=== PATIENT | male | born 1960 | race Caucasian/White ===

== ENCOUNTER 2023-12-02 07:40 | Outpatient (CLI) | payer BC, SELFPAY ==
--- NOTE | 2023-12-02 08:08 | ECG_ITS ---
SEE SCANNED COPY FOR CONFIRMED REPORT MTDD
[2023-12-02 08:36] LABS: Hematocrit 49.2 % (42.0-52.0); Mean Corpuscular HGB Conc 32.5 g/dl (32-36); Mean Corpuscular Hemoglobin 29.3 pg (26-34); Mean Corpuscular Volume 89.9 fl (80-100); Mean Platelet Volume 9.2 fl (7.4-10.4); Platelet Count Result 194 k/mm3 (150-375); Red Blood Count 5.47 M/mm3 (4.6-6.20); Red Cell Distribution Width 12.5 % (11.5-14.5); White Blood Count 6.4 K/mm3 (4.5-10.0)
[2023-12-02 08:37] LABS: Appearance Urine Clear (Clear); Bilirubin Urine Negative (Negative); Blood Urine Negative (Negative); Color Urine Yellow (Yellow); Glucose Urine UA Negative (Negative); Ketones Urine Negative (Negative); Leukocyte Esterase Ur Negative LEU/UL (Negative); Nitrate Urine Negative (Negative); Protein Urine Negative (Negative); Specific Grav Ur 1.023 (1.001-1.035); Urobilinogen Urine 0.2 mg/dL (<2.0); pH Urine 5.5 (5.0-9.0)
[2023-12-02 08:43] LABS: Add Urine Microscopic? NO
[2023-12-02 08:48] LABS: Partial Thromboplastin Time 28.3 Seconds (22.3-36.8)
[2023-12-02 08:51] LABS: Anion Gap 5 mmol/L (4-12); Blood Urea Nitrogen 27 mg/dL (9-20); Calcium 9.1 mg/dL (8.4-10.2); Carbon Dioxide 28 mmol/L (22-30); Chloride 107 mmol/L (98-107); Estimated Glomerular Filt Rate > 60; Glucose 114 mg/dL (65-110); Sodium 140 mmol/L (137-145)
== END 2023-12-02 07:41 | disposition home or self-care (01) ==
PROVIDERS: PCP Internal Medicine; Visit Provider Neurological Surgery
DX: M47.812 Spondylosis without myelopathy or radiculopathy, cervical region (principal); E78.5 Hyperlipidemia, unspecified; I10 Essential (primary) hypertension
CPT/HCPCS: 36415; 80048; 81003; 85027; 85610; 85730; 86850; 86900; 86901; 93005

== ENCOUNTER 2023-12-07 01:28 | Day surgery (SDC) | payer BC, SELFPAY ==
[2023-11-26 11:59] VITALS: BMI 31.6
--- NOTE | 2023-11-26 12:00 | PC.NURSE ---
Report to the Outpatient Waiting Room, entrance under the green pavilion located off [facility], at time _1030_ on date _[id number]_. Planned Procedure Time: _1230_. Time changes happen often and if your time is changed the preop area will call you the afternoon before. - You and your visitor will be asked to self-screen and do not enter if you have any COVID symptoms. - A mask is optional within the hospital at this time. Patients may have clear liquids (water, carbonated beverages, clear teas, apple juice) until 3 hours prior to surgery with a maximum of 20 ounces. - No food from midnight until time of surgery Take the following medications with a SIP of water the morning of surgery: ___None DO NOT STOP ANY OF YOUR OTHER PRESCRIPTION MEDICATIONS PRIOR TO SURGERY ?EXCEPT THE FOLLOWING Medications to discontinue per physician ___All vitamins Date to take last [id number]__[id number] Please no make-up, nail serbian, hairspray, perfume, deodorant, or body powder the day of surgery. No jewelry (including any body piercings) or valuables the day of surgery, leave them at home. Please take a shower or bath the night before, or the morning of, surgery with an antibacterial soap. Wear comfortable, loose fitting clothing. - Jewelry must be removed prior to entering the operating room. Rings and piercings that are not removed may be cut off. - The hospital will not accept responsibility for valuables. - Please leave all valuables, including medications, at home the day of surgery. If you are going home after surgery, a licensed carrier driver must drive you home. - NO public transportation without another adult if you receive anesthesia. - We recommend that an adult stay with you for 24 hours following discharge. - We also recommend that you do not drive, make important decision, drink alcoholic beverages, or take any drugs that were not prescribed by your health care provider for at least 24 hours after your discharge time. Follow any additional instructions given to you from your surgeon. If you or anyone in your household have experienced Covid symptoms in the past week, please notify your surgeon or the nurse liaison at the phone number below for possible testing. Telephone instructions given to _Kiran__and asked if any additional questions and then verbalized understanding. Patient advised to call surgeon office or pre surgery nurse liaison [phone] if any additional questions.
--- NOTE | ~2023-12-07 | XR_ITS ---
EXAMINATION: XR fluoroscopy no charge DATE: 12/07/2023 12:30 CDT INDICATION: C7-T1 ANTERIOR DISCECTOMY AND FUSION . TECHNIQUE: 2 fluoroscopic images of the cervical spine were obtained during C7-T1 anterior discectomy and fusion, performed by Thiago Lambert MD. I was not present during the procedure. Fluoroscopy exposure time was 7.3 seconds. Air Kerma 1.7575 mGy. DAP 0.0348 mGym2. COMPARISON: None FINDINGS/IMPRESSION: Fluoroscopic documentation of C7-T1 anterior discectomy and fusion. Please refer to the operative not e for complete procedural details . Reviewed, dictated and finalized at location K.
[2023-12-07 10:18] VITALS: BP 149/85; PULSE 82; RESP 18; TEMP 36.3; O2SAT 99
--- NOTE | 2023-12-07 11:29 | WPDANESEPPF ---
Anes - Initial Pre Proc Eval Procedure: Operation Date: 12/07/23 12:30 Proposed Procedures p C7-T1 Anterior Discectomy and Fusion - Thiago Lambert MD Date/Time: 12/07/23 11:29 Surgeon: Thiago Lambert MD Pre Op Diagnosis: C7-T1 spondylosis, neuroforaminal narrowing Patient Data Age: 62 Gender: M Height: 1.78 m Weight: 105 kg Last Vital Signs Temp 97.3 F L 12/07/23 10:18 Pulse 82 12/07/23 10:18 Resp 18 12/07/23 10:18 BP 149/85 H 12/07/23 10:18 Pulse Ox 99 12/07/23 10:18 O2 Del Method Room Air 12/07/23 10:18 Allergies Allergy/AdvReac Type Severity Reaction Status Date / Time No Known Allergies Allergy Verified 12/07/23 10:57 Home Medications Medication Instructions Recorded Confirmed Type atorvastatin 40 mg tablet 40 mg PO DAILY 09/21/22 12/07/23 History multivitamin 1 tablet PO DAILY 11/26/23 12/07/23 History valsartan 160 mg tablet 160 mg PO DAILY 11/26/23 12/07/23 History Patient hx anesthesia problems: none Family hx anesthesia problems: none Results Review: All pre-operative results and documents have been reviewed as part of the pre-operative evaluation. [facility] [place] Past Medical History Medical History Hyperlipemia Family History Family History Father Heart disease Mother Hypertension Social History Social History Smoking status: Former smoker Tobacco type: cigars Alcohol intake: current Alcohol use details: occasionally Substance use: never Substance use type: does not use Do You Feel Safe in your Home?: Yes Lack of Transportation: No Lack of Food: Never True Current Housing: I Have Housing Concerned About Future Housing: No Difficulty Paying Gas/Electric Bills: No Difficulty Paying for Meds: No Currently Unemployed: No Education: Bachelor's Degree Difficulty w/ Childcare or Family Care: Decline to Answer Living arrangements: with family Gender identity (if verbalized by the patient): Male Spiritual care concerns: No Anes - Eval Final PreProcedure Day of Procedure 12/07/23 11:29 Patient weight: obese Heart: regular rate and rhythm Lungs: clear to auscultation Airway: Mallampati scale class II Neurological: alert and oriented Last oral intake: >/= 8 hours ASA classification: III Emergent: no Anesthetic plan: proceed Anesthesia type and monitoring: general ETT and standard monitoring Results Review: All pre-operative results and documents have been reviewed as part of the pre-operative evaluation. Informed Consent: The patient's anesthetic plan and its attendant risks and benefits were discussed with the patient/family/POA. Questions were solicited and answers provided to the satisfaction of the patient/family/POA.
--- NOTE | 2023-12-07 11:46 | PM.IMHP ---
H&P: HPI History of Present Illness Date/Time: 12/07/23 11:46 Chief Complaint: Arm pain and weakness Narrative: Kiran is here today for C7-T1 anterior cervical diskectomy and fusion to treat a C8 radiculopathy secondary to compression in the foramen. He continues to have some weakness in his hand and some difficulty looking up and using his arms overhead.? This is not improved dramatically.? His hand function has improved since its initial decline but not recently.? He is still having difficulty doing some activities and just avoids many activities because of the limitations of discomfort and dizziness that occur occasionally occurs if he looks up.? He is not having bowel or bladder difficulty.? He has specific muscle group weakness in his hand and occasional numbness in the right upper extremity.? He has discomfort in the right forearm at times especially when he is using the right hand.? Review of Systems Review of Systems: Const Details: Const Details: Const All systems reviewed & are unremarkable except as noted in HPI and below Denies chills, Denies fever(s), Denies weight gain and Denies weight loss Eyes Denies change in vision and Denies diplopia ENT Denies disequilibrium Card Denies chest pain and Denies dyspnea Resp Denies cough and Denies dyspnea GI Denies abdominal pain, Denies change in bowel habits, Denies fecal incontinence and Denies vomiting Denies hematuria, Denies oliguria, Denies difficulty urinating, Denies dysuria, Denies urinary frequency, Denies urinary hesitancy, Denies urinary incontinence and Denies urinary urgency Musc Reports as per HPI Skin/ Breast Reports system reviewed and no additional complaints, except as documented Neuro Reports as per HPI and Denies disequilibrium Psych Reports no additional complaints, Denies depression and Denies hopelessness Endo Reports no additional complaints and Denies polyuria Werner/ Lymph Reports no additional complaints Aller/ Immun Reports no additional complaints PMFSH Past Medical History Medical History Hyperlipemia Family History Family History Father Heart disease Mother Hypertension Social History Social History Smoking status: Former smoker Tobacco type: cigars Alcohol intake: current Alcohol use details: occasionally Substance use: never Substance use type: does not use Do You Feel Safe in your Home?: Yes Lack of Transportation: No Lack of Food: Never True Current Housing: I Have Housing Concerned About Future Housing: No Difficulty Paying Gas/Electric Bills: No Difficulty Paying for Meds: No Currently Unemployed: No Education: Bachelor's Degree Difficulty w/ Childcare or Family Care: Decline to Answer Living arrangements: with family Gender identity (if verbalized by the patient): Male Spiritual care concerns: No Meds Home Medications and Allergies Home Medications Medication Instructions Recorded Confirmed Type atorvastatin 40 mg tablet 40 mg PO DAILY 09/21/22 12/07/23 History multivitamin 1 tablet PO DAILY 11/26/23 12/07/23 History valsartan 160 mg tablet 160 mg PO DAILY 11/26/23 12/07/23 History Allergies Allergy/AdvReac Type Severity Reaction Status Date / Time No Known Allergies Allergy Verified 12/07/23 10:57 Vital Signs Vital Signs - 24 hr 12/07/23 10:18 Temperature 97.3 F L Pulse Rate 82 Respiratory Rate 18 Blood Pressure 149/85 H Pulse Oximetry 99 Oxygen Delivery Room Air Exam Narrative: Exam Const General: cooperative, no acute distress, well developed, alert and awake Orientation/Consciousness: oriented to person, oriented to place and oriented to time Constitutional Limitations: no limitations Other: The patient is a normally developed, normal appearing male sitti
--- NOTE | 2023-12-07 11:49 | WPDHPUPDATE1 ---
History and Physical Update Update Date/Time: 12/07/23 11:49 History and Physical has been reviewed, including an updated exam of the patient. There are NO changes in the patient's condition. Risks, benefits, and alternatives have been discussed and questions answered. Patient agrees to proceed with procedure.
[2023-12-07] MEDS: ceFAZolin 2 GM/D5W 50 ML 2 GM/50 ML BAG IVPB (11:58)
[2023-12-07] MEDS: LIDO 1%/EPINEPHRINE 1:100,000 50 ML VIAL 10 ML INFILTRATE (12:34)
[2023-12-07 13:53] VITALS: BP 118/62; PULSE 100; RESP 15; TEMP 36.1; O2SAT 100
[2023-12-07] MEDS: LACTATED RINGERS 1,000 ML 30 ML IV CONT (13:53)
--- NOTE | 2023-12-07 13:58 | W.PM.PROC2 ---
Procedure Note - Detailed Date of Procedure 12/07/23 Pre-op Diagnosis C7-T1 spondylosis, neuroforaminal narrowing Post-op Diagnosis Same Procedure Performed C7-T1 complete diskectomy and bilateral foraminotomy, C7-T1 interbody arthrodesis utilizing peek interbody device and local autograft and I factor, C7-T1 anterior cervical plating with locking plate and screws, use of fluoroscopy Surgeon Thiago Lambert MD Anesthesia General Description of Procedure The patient was brought to the operating room in the supine position, was sedated, intubated and placed under general anesthesia in routine fashion. The area of operation on the right side of the neck was examined, marked for incision, prepped and draped in routine sterile fashion. Incision was marked from the midline over the medial aspect of the sternocleidomastoid muscle and curvilinear transverse fashion just above the sternal notch. This area was injected with 0.5% lidocaine with [id number] epinephrine. Intravenous antibiotics given prior to incision. Incision was made with a 10 blade scalpel down to the platysma muscle. The skin was undermined the platysma muscle was divided longitudinally with its fibers using Metzenbaum scissors. Plane was then dissected medial to the sternocleidomastoid muscle down to the anterior aspect of spine using the finger and Metzenbaum scissors. A verifying x-rays obtained to verify the level of operation. At C7-T1 the longus colli muscle was dissected free of the anterior aspect of spine using Bovie cautery. Shadow Line retractor system was placed. Ancelmo pins were placed in the C7 and T1 and distraction placed over the disc space. The disc spaces entered using a 15 blade scalpel cutting along the margin of the bone above and below. She a curved curette and pituitary rongeur were used to remove as much cartilaginous endplate and disc material as possible down to the annulus and ligament posteriorly. Midas-Regan drill was used to bur down the endplates to bleeding cortical flat surfaces as well as to begin a bony foraminotomy bilaterally. Under microscopy 4-0 curved curette was used to come through the annulus and ligament. 2. Kerrison punch was then used to remove annulus, ligament, posterior osteophyte and to complete the bony foraminotomy bilaterally. This was done until a nerve hook could be placed out each foramen to confirm lack of compression. The disc spaces and sized and a 6 mm interbody devices and chosen and filled with local autograft bone. This was tamped into the interspace to a 1-2 mm countersink. The Ancelmo pins were then removed as well as distraction. An anterior cervical plate was chosen, placed in position and secured using 414 x 4 mm anterior screws advance into the locking mechanism of the placed a hand tightness. 12 mm plate was chosen. Locking mechanism was then engaged each screw. A verifying x-rays obtained to verify good position of the instrumentation which was confirmed as much as could be given the interference of the shoulders. The wound was then copiously irrigated with bacitracin irrigation all bleeding stopped with bipolar and Bovie cautery and Gelfoam thrombin powder. The wound was then closed in layered fashion with 3-0 Vicryl interrupted sutures in the distal muscle and the dermis. The skin was closed with a running 4-0 Monocryl subcuticular stitch and dressed with Dermabond. The patient was allowed to wake up in the operating room was taken to the recovery room in stable condition. There were no immediate complications of this operation. All counts were reported correct the end of the case. Blood loss was 25 cc. The patient was neurologically at his baseline postoperatively. Estimated Blood Loss 25 IV Fluids 1,000 Complications None Condition Stable Disposition PACU [facility] Billing Surgery - Charge Forward: Surgery Billing
[2023-12-07 14:10] VITALS: BP 129/77; PULSE 79; RESP 12; O2SAT 99
[2023-12-07 14:24] VITALS: BP 102/78; PULSE 73; RESP 15; O2SAT 96
[2023-12-07 14:26] VITALS: BP 111/63; PULSE 72; RESP 15
[2023-12-07] MEDS: oxyCODONE HCL (*CRX) 5 MG TAB IR PO (14:43)
== END 2023-12-07 15:10 | disposition home or self-care (01) ==
PROVIDERS: PCP Internal Medicine; Visit Provider Neurological Surgery
PROC: (CPT 63030; principal; 2023-12-07 12:30)
DX: M47.23 Other spondylosis with radiculopathy, cervicothoracic region (principal); M48.03 Spinal stenosis, cervicothoracic region; E78.5 Hyperlipidemia, unspecified; Z87.891 Personal history of nicotine dependence
CPT/HCPCS: 22551; 22853; 20936; 99199; A9270; C1713; J0690; J1100; J2250; J2704; J3010; J7120